=== PATIENT | female | born 1990 ===

== ENCOUNTER → 2025-04-08 07:14 | Outpatient (REF) | payer OTHER, SELFPAY | LOC: RAD 07:14 | PROVIDERS: ATTENDING PHYSICIAN Internal Medicine; FAMILY PHYSICIAN Family Medicine Geriatric Medicine | DX: R10.31 Right lower quadrant pain (principal); R14.0 Abdominal distension (gaseous); R19.12 Hyperactive bowel sounds | CPT/HCPCS: 74177; Q9967 ==